=== PATIENT | female | born 1985 | race Caucasian/White ===

== ENCOUNTER 2017-09-27 19:49 | Emergency (ER) | payer MEDICAID ==
[~2017-09-27] VITALS: Ht 152.4 cm; Wt 67.1 kg
[2017-09-27 20:18] VITALS: BP 133/90; Ht 152.4 cm; Wt 67.1 kg
== END 2017-09-27 21:19 | disposition left against medical advice (07) ==
LOC: ED 19:49
DX: Z53.21 Procedure and treatment not carried out due to patient leaving prior to being seen by health care provider (principal)

== ENCOUNTER 2017-09-27 22:23 | Emergency (ER) | payer MEDICAID ==
[~2017-09-27] VITALS: Ht 152.4 cm; Wt 66.7 kg
[2017-09-27 23:22] VITALS: BP 136/95; Ht 152.4 cm; Wt 66.7 kg
== END 2017-09-28 01:31 | disposition home or self-care (01) ==
LOC: ED 22:23
DX: L60.0 Ingrowing nail (principal)
CPT/HCPCS: J2001

== ENCOUNTER 2017-09-30 15:40 | Emergency (ER) | payer MEDICAID ==
[~2017-09-30] VITALS: Ht 152.4 cm; Wt 65.8 kg
[2017-09-30 16:31] VITALS: Ht 152.4 cm; Wt 65.8 kg
[2017-09-30 19:41] VITALS: BP 121/85
== END 2017-09-30 19:41 | disposition home or self-care (01) ==
LOC: ED 15:40
DX: L60.0 Ingrowing nail (principal)
CPT/HCPCS: 90715; J2001